=== PATIENT | female | born 1940 | race Caucasian/White ===

== ENCOUNTER 2016-08-27 01:42 | Emergency (ER) | payer MEDICARE, OTHER ==
--- NOTE | 2016-08-27 02:12 | ERNOTE ---
Neuro HPI ER Record Presenting Symptoms: weakness, confusion Time Seen by Provider: 08/27/16 01:48 Source: patient, EMS Exam Limitations: no limitations Immunizations: IMMUNIZATION HX Immunizations Up to Date No History of Influenza Vaccine More Information Required Hx Pneumococcal Vaccination More Information Required Allergies/Adverse Reactions: Allergies Allergy/AdvReac Type Severity Reaction Status Date / Time hydrochlorothiazide Allergy Intermediate angioedema Verified 04/23/16 15:38 Sulfa (Sulfonamide Allergy Intermediate Shortness Verified 04/23/16 15:38 Antibiotics) of Breath [Sulfa(Sulfonamide Antibiotics)] zolpidem tartrate Allergy Verified 04/23/16 15:38 [From Ambien] adhesive AdvReac Mild paper tape Verified 04/23/16 15:38 causes rash oxycodone HCl AdvReac Mild NIGHTMARES Verified 04/23/16 15:38 [From OxyContin] varenicline tartrate AdvReac Mild crying, Verified 04/23/16 15:38 [From Chantix] vomiting, difficulty with memory zolpidem [Zolpidem] AdvReac Mild nightmares Verified 04/23/16 15:38 Home Medications: HOME MEDICATIONS Calcium Carbonate/Vitamin D3 [Calcium 600 + Vit D 400 Tablet] 1 each PO BID 06/13 [Last Taken 12/22/13 1 EACH] Ezetimibe [Zetia] 10 mg PO DAILY 11/09/12 [Last Taken 12/22/13 10 MG] Isosorbide Mononitrate [Imdur] 15 mg PO DAILY 11/09/12 [Last Taken 12/22/13 15 MG] Metoprolol Succinate [Toprol Xl] 100 mg PO DAILY 11/09/12 [Last Taken 12/22/13 100 MG] Omeprazole 20 mg PO BID 11/09/12 [Last Taken 12/22/13 20 MG] Oxybutynin Chloride [Ditropan Xl] 5 mg PO HS PRN 11/09/12 [Last Taken 12/22/13 5 MG] Acetaminophen [Tylenol] 650 mg PO TID 04/21/13 [Last Taken 12/22/13 650 MG] [place]-3 Fatty Acids [Fish Oil] 1,000 mg PO DAILY 04/21/13 [Last Taken 12/22/13 2 TAB] Travoprost [Travatan Z] 1 drop EACHEYE HS 04/21/13 [Last Taken 12/22/13 1 DROP] Aspirin [Aspirin Enteric Coated] 325 mg PO DAILY #0 tablet.dr 12/22/13 [Last Taken 12/22/13 325 MG] Glimepiride [Amaryl] 2 mg PO DAILY@0700 #0 tablet 12/28/13 [Last Taken Unknown] Albuterol Sulfate 2.5 mg IH QID 09/11/14 [Last Taken Unknown] Bupropion HCl [Wellbutrin Xl] 300 mg PO DAILY 09/11/14 [Last Taken Unknown] Levothyroxine Sodium [Synthroid] 50 mcg PO DAILY 09/11/14 [Last Taken Unknown] Nitroglycerin [Nitrostat] 0.4 mg SL Q5MIN PRN 09/11/14 [Last Taken Unknown] traMADol HCL [Ultram] 50 mg PO QID PRN 09/11/14 [Last Taken Unknown] Blood Sugar Diagnostic, um [Accu-Chek Compact] 1 each MC DAILY 12/01/15 [Last Taken Unknown] Fenofibrate [Lipofen] 150 mg PO DAILY 12/01/15 [Last Taken Unknown] Trimethoprim [Trimpex] 100 mg PO DAILY 02/16/16 [Last Taken Unknown] Clopidogrel Bisulfate [Plavix] 75 mg PO DAILY #30 tablet 02/20/16 [Last Taken Unknown] Terazosin HCl [Hytrin] 5 mg PO HS #30 capsule 02/20/16 [Last Taken Unknown] Enalapril Maleate [Vasotec] 2.5 mg PO DAILY 04/23/16 [Last Taken Unknown] - History of Present Illness Narrative: Family state they heard the patient get up and fall to the floor. When they got to her she as unresponsive. EMS was called and found her blood sugar to be 30, they administered one amp of D 50 IV. She became more responsive and upon presentation to the ED she is alert and awake Onset: upon waking Severity: severe Context: fall - without injury - Patient's Past Medical History Patient History - Medical: Anxiety, Diabetes Type 2, Depression, Fibromyalgia, GERD, Hypothyroidism, UTI'S Patient History - Cardiac/Respiratory: Coronary Heart Disease, Hypertension Patient History - Cancer: Skin Patient History - Surgical Procedures: Cancer Surgery, Cataracts, Cardiac stent , Hysterectomy Patient History - Other: Pentecostalism/Cultural Beliefs affecting care - Family History Sister Family History - Cardiac/Respiratory: Coronary Heart Disease Mother Family History - Medical: , Diabetes Type 2 Family History - Cardiac/Respiratory: Coronary Heart Disease, Hypertension, Myocardial Infarction Grandmother-Maternal Family History - Medical: Family History - Cardiac/Respiratory: Coronary Heart Disease, Myocardial Infarction - Social History Living Situations: alone Alcohol Use: none Drug Use: none - Immunizations Immunizations Up to Date: No Hx Pneumococcal Vaccination: More Information Required to Determine History of Influenza Vaccine: More Information Required to Determine Physical Exam - Physical Exam General Appearance: Present: wd/wn, alert, no apparent distress Eye Exam: Normal inspection: bilateral, PERRL: bilateral Ears, Nose, Throat: Present: normal ENT inspection, hearing grossly normal Neck: Present: normal inspection, nontender Respiratory: Present: no respiratory distress, normal breath sounds, no accessory muscle use, chest nontender, lungs clear Cardiovascular/Chest: Present: regular rate, rhythm, systolic murmur - 2/6 Gastrointestinal/Abdominal: Present: nontender, nondistended, soft, abnormal bowel sounds - hyperactive Extremity Exam: Present: normal inspection, non-tender, no edema Neurological Exam: Present: alert, oriented, normal mood/affect, no motor/ sensory deficits Skin Exam: Present: normal color, warm/dry Lymphatic Exam: Present: no adenopathy Komal Coma Scale - Assess Eye Opening: Spontaneous Motor: Obeys Commands Verbal: Oriented - Total Coma Scale Total: 15 ED Progress - Results and Orders Patient's Lab Results:: I have reviewed the patient's lab results. Results and Orders: Laboratory Tests 08/27/16 08/27/16 02:23 02:23 WBC 6.9 Hgb 12.5 Hct 38.2 Plt Count 207 Sodium 141 Potassium 3.3 L D Chloride 106 Carbon Dioxide 25.6 Anion Gap 12.7 BUN 29 H Creatinine 1.59 H BUN/Creatinine Ratio 18.2 Random Glucose 90 Calcium 8.7 Total Bilirubin 0.3 AST 23 ALT 18 L Alkaline Phosphatase 65 Total Protein 6.8 Albumin 3.2 L Laboratory Tests 08/27/16 03:00 Urine Color Pale yellow Urine Appearance Clear Urine pH 6.0 Ur Specific Bee >=1.030 Urine Protein Negative Urine Glucose (UA) Negative Urine Ketones Negative Urine Blood 50 H Urine Nitrate Negative Urine Bilirubin Negative Urine Urobilinogen Normal Ur Leukocyte Esterase Negative Urine RBC 0-5 Urine WBC 0-5 Ur Epithelial Cells 5-10 H Urine Bacteria None seen Urine Culture Comments No culture indicated - Vital Signs Patient's Vital Signs:: I have reviewed the patient's vital signs. Vital Signs: Vital Signs 08/27/16 01:45 Temperature 36.8 C Pulse Rate 57 L Respiratory 185 H Rate Blood Pressure 118/54 O2 Sat by Pulse 96 Oximetry - Progress/Reassessment Chief Complaint: Altered Mental Status Departure Clinical Impression: Hypoglycemia - Departure Disposition: Home self-care Condition: Good Instructions: Hypoglycemia, [id number] Additional Instructions: Watch your blood sugar closely for the next few days Referrals: Joseph Shepherd DO [Primary Care Provider] -
[2016-08-27 02:28] LABS: Hematocrit 38.2 % (37.0-47.0); Hemoglobin 12.5 gm/dL (12.5-16.0); Mean Cell Volume 88.8 fl (78-100); Mean Corpuscular Hemoglobin 29.1 pg (27-31); Mean Corpuscular Hgb Conc 32.7 g/dl (32-36); Mean Platelet Volume 10.6 fl (6.0-9.5); Neutrophil # 4.5 K/mm3 (1.3-6.0); Neutrophil % 64.8 % (42-75.0); Platelet Count 207 K/mm3 (150-450); Red Cell Distribution Width 13.2 % (11.5-14.0); White Blood Count 6.9 K/mm3 (4.0-10.5)
[2016-08-27 02:43] LABS: Albumin * 3.2 gm/dl (3.4-5.0); Anion Gap 12.7 mmol/L (6.8-13.8); BUN/Creatinine Ratio 18.2 (9.0-21.6); Bilirubin, Total 0.3 mg/dL (0.0-1.1); Calcium * 8.7 mg/dL (7.9-10.9); Carbon Dioxide 25.6 mmol/L (24-32.6); Potassium 3.3 mmol/L (3.4-4.6); Total Protein 6.8 gm/dL (6.2-8.2)
[2016-08-27 03:17] LABS: Urine Bilirubin Negative (NEGATIVE); Urine Blood 50 /ul (NEGATIVE); Urine Ketone Negative (NEGATIVE); Urine Nitrite Negative (NEGATIVE); Urine Protein Negative (NEGATIVE); Urine Specific Gravity >=1.030 SP.GR. (1.005-1.010); Urine Urobilinogen Normal (NORMAL)
[2016-08-27 03:18] LABS: Urine Appearance Clear; Urine Bacteria None Seen; Urine Color Pale Yellow; Urine RBC 0-5 /hpf (0-5); Urine WBC 0-5 /hpf (0-5)
[2016-08-27 05:06] VITALS: BP 165/67
== END 2016-08-27 04:05 | disposition home or self-care (01) ==
LOC: ER 01:42
DX: E16.2 Hypoglycemia, unspecified (principal); I10 Essential (primary) hypertension; K21.9 Gastro-esophageal reflux disease without esophagitis; E11.9 Type 2 diabetes mellitus without complications; F32.9 Major depressive disorder, single episode, unspecified; Z85.828 Personal history of other malignant neoplasm of skin; Z87.440 Personal history of urinary (tract) infections

== ENCOUNTER 2016-08-28 10:52 | Emergency (ER) | payer MEDICARE, OTHER ==
[2016-08-28] MEDS ORDERED: DEXTROSE 50%-WATER 50 ML SYRG IV ONE (11:06)
[2016-08-28] MEDS ORDERED: NORMAL SALINE 500 ML IV ONE (11:06)
[2016-08-28 11:29] LABS: Hematocrit 38.8 % (37.0-47.0); Hemoglobin 12.8 gm/dL (12.5-16.0); Mean Cell Volume 88.6 fl (78-100); Mean Corpuscular Hemoglobin 29.2 pg (27-31); Mean Platelet Volume 10.7 fl (6.0-9.5); Neutrophil # 5.8 K/mm3 (1.3-6.0); Neutrophil % 66.7 % (42-75.0); Platelet Count 220 K/mm3 (150-450); Red Blood Count 4.38 M/mm3 (4.2-5.4); Red Cell Distribution Width 13.1 % (11.5-14.0); Urine Bilirubin Negative (NEGATIVE); Urine Blood Negative /ul (NEGATIVE); Urine Ketone Negative (NEGATIVE); Urine Nitrite Negative (NEGATIVE); Urine Protein Negative (NEGATIVE); Urine Specific Gravity >=1.030 SP.GR. (1.005-1.010); Urine Urobilinogen Normal (NORMAL); White Blood Count 8.7 K/mm3 (4.0-10.5)
[2016-08-28 11:41] LABS: Urine Appearance Cloudy; Urine Bacteria None Seen; Urine Color Yellow; Urine RBC None Seen /hpf (0-5); Urine WBC None Seen /hpf (0-5)
[2016-08-28 11:47] LABS: ALT 18 U/L (19-67); AST 20 U/L (0-48); Albumin * 3.2 gm/dl (3.4-5.0); Alkaline Phosphatase * 62 U/L (50-170); Anion Gap 11.6 mmol/L (6.8-13.8); BUN/Creatinine Ratio 12.3 (9.0-21.6); Bilirubin, Total 0.2 mg/dL (0.0-1.1); Blood Urea Nitrogen 20 mg/dL (3-23); Ca. Corrected For Albumin 9.8 mg/dL (8.4-10.2); Calcium * 9.5 mg/dL (7.9-10.9); Chloride 104 mmol/L (97-106); Glucose * 234 mg/dL (70-110); Lipase 197 U/L (73-393); Potassium 3.6 mmol/L (3.4-4.6); Sodium 140 mmol/L (132-142); Total Protein 6.8 gm/dL (6.2-8.2); Troponin I Less than 0.017 ng/ml (0.00-0.10)
[2016-08-28] MEDS ORDERED: NORMAL SALINE 1,000 ML IV PRN (12:11)
[2016-08-28] MEDS ORDERED: ASPIRIN 300 MG SUPP.RECT RC ONE (12:58)
[2016-08-28] MEDS: ASPIRIN 300 MG SUPP.RECT RC ONE (13:04)
--- NOTE | 2016-08-28 13:45 | ERNOTE ---
Medical Problem HPI - Narrative Date of Service: 08/28/16 - General Chief Complaint: Diabetes Related Problem Time Seen by Provider: 08/28/16 11:02 Source: patient, family Exam Limitations: clinical condition - Immun/Allergies/Home Medications Immunizations: IMMUNIZATION HX Immunizations Up to Date No History of Influenza Vaccine More Information Required Hx Pneumococcal Vaccination More Information Required Allergies/Adverse Reactions: Allergies hydrochlorothiazide Allergy (Intermediate, Verified 08/28/16 11:04) angioedema Sulfa (Sulfonamide Antibiotics) [Sulfa(Sulfonamide Antibiotics)] Allergy ( Intermediate, Verified 08/28/16 11:04) Shortness of Breath zolpidem tartrate [From Ambien] Allergy (Verified 08/28/16 11:04) adhesive Adverse Reaction (Mild, Verified 08/28/16 11:04) paper tape causes rash oxycodone HCl [From OxyContin] Adverse Reaction (Mild, Verified 08/28/16 11:04) NIGHTMARES varenicline tartrate [From Chantix] Adverse Reaction (Mild, Verified 08/28/16 11 :04) crying, vomiting, difficulty with memory zolpidem [Zolpidem] Adverse Reaction (Mild, Verified 08/28/16 11:04) nightmares Home Medications: HOME MEDICATIONS Calcium Carbonate/Vitamin D3 [Calcium 600 + Vit D 400 Tablet] 1 each PO BID 06/13 [Last Taken 12/22/13 1 EACH] Ezetimibe [Zetia] 10 mg PO DAILY 11/09/12 [Last Taken 12/22/13 10 MG] Isosorbide Mononitrate [Imdur] 15 mg PO DAILY 11/09/12 [Last Taken 12/22/13 15 MG] Metoprolol Succinate [Toprol Xl] 100 mg PO DAILY 11/09/12 [Last Taken 12/22/13 100 MG] Omeprazole 20 mg PO BID 11/09/12 [Last Taken 12/22/13 20 MG] Oxybutynin Chloride [Ditropan Xl] 5 mg PO HS PRN 11/09/12 [Last Taken 12/22/13 5 MG] Acetaminophen [Tylenol] 650 mg PO TID 04/21/13 [Last Taken 12/22/13 650 MG] [place]-3 Fatty Acids [Fish Oil] 1,000 mg PO DAILY 04/21/13 [Last Taken 12/22/13 2 TAB] Travoprost [Travatan Z] 1 drop EACHEYE HS 04/21/13 [Last Taken 12/22/13 1 DROP] Aspirin [Aspirin Enteric Coated] 325 mg PO DAILY #0 tablet. 12/22/13 [Last Taken 12/22/13 325 MG] Glimepiride [Amaryl] 2 mg PO DAILY@0700 #0 tablet 12/28/13 [Last Taken Unknown] Albuterol Sulfate 2.5 mg IH QID 09/11/14 [Last Taken Unknown] Bupropion HCl [Wellbutrin Xl] 300 mg PO DAILY 09/11/14 [Last Taken Unknown] Levothyroxine Sodium [Synthroid] 50 mcg PO DAILY 09/11/14 [Last Taken Unknown] Nitroglycerin [Nitrostat] 0.4 mg SL Q5MIN PRN 09/11/14 [Last Taken Unknown] traMADol HCL [Ultram] 50 mg PO QID PRN 09/11/14 [Last Taken Unknown] Blood Sugar Diagnostic, Amrik [Accu-Chek Compact] 1 each MC DAILY 12/01/15 [Last Taken Unknown] Fenofibrate [Lipofen] 150 mg PO DAILY 12/01/15 [Last Taken Unknown] Trimethoprim [Trimpex] 100 mg PO DAILY 02/16/16 [Last Taken Unknown] Clopidogrel Bisulfate [Plavix] 75 mg PO DAILY #30 tablet 02/20/16 [Last Taken Unknown] Terazosin HCl [Hytrin] 5 mg PO HS #30 capsule 02/20/16 [Last Taken Unknown] Enalapril Maleate [Vasotec] 2.5 mg PO DAILY 04/23/16 [Last Taken Unknown] - History of Present History Narrative: Patient initially with decreased mental status which seems to clear in the ED nicely. Family relates a GI illness tuesday and tuesday. Vomiting and diarrhea. This has resolved. Tuesday she had hypoglycemia. Was at baseline last night but this am was difficult to arouse and unable to take meds, not herself. They took her blood sugar and it was low but they have been getting chronic low readings at home. Here on arrival blood sugar 89, not low. She tells me she has spinning dizziness. She denies new pain. This is difficult to obtain from the patient as she is hard to understand. She denies acute CP or SOB. Timing: constant Modifying Factors - (Improves): Present: other - none Modifying Factors - (Worsens): Present: other - none Review of Systems - Narrative Narrative: Difficult to obtain d/t patient mental status, and speech. - Review of Systems All Other Systems: All systems neg except as marked - Patient's Past Medical History Patient History - Medical: Anxiety, Diabetes Type 2, Depression, Fibromyalgia, GERD, Hypothyroidism, UTI'S Patient History - Cardiac/Respiratory: Coronary Heart Disease, Hypertension Patient History - Cancer: Skin Patient History - Surgical Procedures: Cancer Surgery, Cataracts, Cardiac stent , Hysterectomy Patient History - Other: Amish/Cultural Beliefs affecting care LMP (females 10-50): Menopausal - Family History Sister Family History - Cardiac/Respiratory: Coronary Heart Disease Mother Family History - Medical: , Diabetes Type 2 Family History - Cardiac/Respiratory: Coronary Heart Disease, Hypertension, Myocardial Infarction Family History - Cancer: No pertinent family hx Grandmother-Maternal Family History - Medical: Family History - Cardiac/Respiratory: Coronary Heart Disease, Myocardial Infarction - Social History Living Situations: home Alcohol Use: none Drug Use: none - Immunizations Immunizations Up to Date: No Hx Pneumococcal Vaccination: More Information Required to Determine History of Influenza Vaccine: More Information Required to Determine Physical Exam - Physical Exam General Appearance: Present: other - somnolent. no acute distress. Eye Exam: Normal inspection: bilateral, PERRL: bilateral - pupils 3mm but appear to react, EOMI: bilateral - difficult exam. Ears, Nose, Throat: Present: normal ENT inspection Neck: Present: normal inspection Respiratory: Present: no respiratory distress, normal breath sounds, no accessory muscle use, lungs clear Cardiovascular/Chest: Present: regular rate, rhythm, normal peripheral pulses Gastrointestinal/Abdominal: Present: normal bowel sounds, nontender, soft, no organomegaly Back Exam: Present: no CVA tenderness Extremity Exam: Absent: calf tenderness Neurological Exam: Present: other - somnolent. Account Support Analyst equal. She will not lift either leg off the bed against gravity. She relates spinning dizziness. Skin Exam: Absent: skin rash ED Progress - Results and Orders Patient's Lab Results:: I have reviewed the patient's lab results. - Vital Signs Patient's Vital Signs:: I have reviewed the patient's vital signs. Vital Signs: Vital Signs 01/08/28/16 08/28/16 10:56 10:58 11:04 Temperature 35.0 C L Pulse Rate 63 61 60 Respiratory 12 13 Rate Blood Pressure 159/129 159/129 O2 Sat by Pulse 100 99 Oximetry 08/28/16 08/28/16 11:11 11:25 Temperature Pulse Rate 60 60 Respiratory 12 12 Rate Blood Pressure 167/89 164/62 O2 Sat by Pulse 100 99 Oximetry - EKG EKG read: Interp. by me EKG Comments: Sinus Bradycardia rate 59. Non-specific ST/T wave changes, no evidence of STEMI. - X-Ray X-Ray #1 X-Ray: chest Interpretation: Reviewed by me X-ray Comments: I reviewed official radiology report. - CT/Ultrasound CT/Ultrasound Narrative: Discussed head CT with radiology. Reviewed report. - Progress/Reassessment Chief Complaint: Diabetes Related Problem Progress:: Improved Progress Note-Subjective: 08/28/16 13:42 She never had documented hypoglycemia. 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 Out of tPA window as last normal last night. Awoke with Sx. 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 I queried if this needed stroke center or could be managed here, they recommend transfer to their stroke center. Pt and family agreeable. Transfer, Dr Tyler accepting. Departure - Departure Clinical Impression: Mental status change, Stroke Disposition: [facility] Condition: Stable Referrals: Joseph Shepherd DO [Primary Care Provider] -
[2016-08-28 19:20] VITALS: BP 123/97
== END 2016-08-28 13:30 | disposition short-term general hospital (02) ==
LOC: ER 10:52
PROC: 0T9B70Z Drainage of Bladder with Drainage Device, Via Natural or Artificial Opening (ICD-10-PCS; principal; 2016-08-28)
DX: I63.9 Cerebral infarction, unspecified (principal); R41.82 Altered mental status, unspecified; E03.9 Hypothyroidism, unspecified; E78.5 Hyperlipidemia, unspecified; I10 Essential (primary) hypertension; E11.9 Type 2 diabetes mellitus without complications; F32.9 Major depressive disorder, single episode, unspecified